=== PATIENT | female | born 1980 | race African-American/Black ===

== ENCOUNTER 2016-12-15 17:59 | Emergency (ER) | payer OTHER | END 2016-12-15 19:50 | disposition short-term general hospital (02) | LOC: BURERS 17:59 | DX: M54.16 Radiculopathy, lumbar region (principal); R32 Unspecified urinary incontinence; J45.909 Unspecified asthma, uncomplicated; K21.9 Gastro-esophageal reflux disease without esophagitis | CPT/HCPCS: 99284 ==

== ENCOUNTER 2017-05-28 12:26 | Emergency (ER) | payer OTHER, SELFPAY | END 2017-05-28 13:11 | disposition home or self-care (01) | LOC: BURERS 12:26 | DX: J06.9 Acute upper respiratory infection, unspecified (principal); S50.862A Insect bite (nonvenomous) of left forearm, initial encounter; K21.9 Gastro-esophageal reflux disease without esophagitis; J45.909 Unspecified asthma, uncomplicated; W57.XXXA Bitten or stung by nonvenomous insect and other nonvenomous arthropods, initial encounter | CPT/HCPCS: 99283 ==

== ENCOUNTER 2017-08-14 13:23 | Emergency (ER) | payer MEDICAID, OTHER ==
[2017-08-14] MEDS ORDERED: Ondansetron ODT 4 MG TAB ONE (13:41)
[2017-08-14] MEDS ORDERED: Benzonatate 100 MG CAP ONE (13:41)
[2017-08-14] MEDS ORDERED: AMOXicillin 250 MG CAP ONE (14:09)
== END 2017-08-14 14:15 | disposition home or self-care (01) ==
LOC: BURERS 13:23
DX: J02.9 Acute pharyngitis, unspecified (principal); K21.9 Gastro-esophageal reflux disease without esophagitis; J45.909 Unspecified asthma, uncomplicated; E66.9 Obesity, unspecified
CPT/HCPCS: 99283; Q0162

== ENCOUNTER 2017-11-03 10:01 | Emergency (ER) | payer OTHER ==
[2017-11-03] MEDS ORDERED: Benzonatate 100 MG CAP ONE (10:29)
== END 2017-11-03 10:49 | disposition home or self-care (01) ==
LOC: BURERS 10:01
DX: J06.9 Acute upper respiratory infection, unspecified (principal); K21.9 Gastro-esophageal reflux disease without esophagitis; J45.909 Unspecified asthma, uncomplicated; E66.9 Obesity, unspecified
CPT/HCPCS: 99283